=== PATIENT | female | born 1935 | race Caucasian/White ===

== ENCOUNTER 2018-11-02 07:57 | Day surgery (SDC) | payer BC ==
[~2018-11-02 07:57] MED LIST: LIDOCAINE HCL 1% MPF 30 SOL ONE; PROPOFOL 500 MG/50 ML EMU IV ONE
[2018-11-02 09:06] VITALS: TEMP 97.6
[2018-11-02 09:18] VITALS: O2SAT 99
[2018-11-02 09:30] VITALS: BP 140/61; PULSE 68; RESP 16
== END 2018-11-02 09:47 | disposition home or self-care (01) | DRG 951 ==
LOC: SURG 07:57
PROVIDERS: ATTEND Surgery
DX: Z12.11 Encounter for screening for malignant neoplasm of colon (principal); Z86.010 Personal history of colon polyps; K57.30 Diverticulosis of large intestine without perforation or abscess without bleeding; D12.3 Benign neoplasm of transverse colon
CPT/HCPCS: J2001; J2704